=== PATIENT | female | born 1990 | race Two or more races ===

== ENCOUNTER 2018-11-05 19:23 | Emergency (ER) | payer MEDICAID ==
[~2018-11-05] VITALS: Ht 162.6 cm; Wt 63.5 kg
[2018-11-05 19:40] VITALS: BP 117/79
--- NOTE | 2018-11-05 19:40 | NUR ---
ED Nurse Note: pt walk in c/o burning sensation with urination with lower back pain for 2 days. denies n/v/d. will cont monitor.
--- NOTE | 2018-11-05 20:17 | Emergency Room Report ---
History of Present Illness General Chief Complaint: Female Urogenital Problems Source: Patient Present Illness HPI 28-year-old female patient presents the ER complaining of burning pain with urination times 2-day. Reports his been taking Pyridium without relief of symptoms. Reports suprapubic and bilateral flank pain during this time. Denies fever, chest pain, shortness of breath. Denies vomiting. Reports recent sexual activity with protection, denies concern for STI. Denies foul- smelling odor. Denies vaginal discharge. Denies pelvic lesions or rash. Denies other aggravating or relieving factors. Allergies: Coded Allergies: No Known Allergies (Unverified , 11/05/18) Patient History Past Medical History: see triage record Last Menstrual Period: 11/01/2018 Now: No Reviewed Nursing Documentation: PMH: Agreed; PSxH: Agreed Nursing Documentation-PMH Past Medical History: No Stated History Review of Systems All Other Systems: negative except mentioned in HPI Physical Exam Vital Signs Date Time Temp Pulse Resp B/P (MAP) Pulse Ox O2 Delivery O2 Flow Rate FiO2 11/05/18 19:29 97.5 73 16 117/79 97 Room Air Sp02 EP Interpretation: reviewed, normal General Appearance: well appearing, no apparent distress, alert, GCS 15, non- toxic Head: normocephalic, atraumatic Eyes: bilateral eye normal inspection, bilateral eye PERRL ENT: hearing grossly normal, normal pharynx, no angioedema, normal voice, uvula midline, moist mucus membranes Neck: full range of motion Respiratory: lungs clear, normal breath sounds, no rhonchi, no respiratory distress, no accessory muscle use, no wheezing, speaking full sentences Cardiovascular #1: regular rate, rhythm, no edema Gastrointestinal: non tender, soft, no mass, non-distended, no guarding, no rebound Genitourinary: no CVA tenderness Musculoskeletal: back normal, digits/nails normal, gait/station normal, normal range of motion, non-tender Neurologic: alert, oriented x3, responsive, motor strength/tone normal, sensory intact Psychiatric: mood/affect normal Medical Decision Making PA Attestation Dr. Skinner is my supervising Physician whom patient management has been discussed with. Diagnostic Impression: Primary Impression: Urinary tract infection ER Course Pt presents to ED c/o burning pain with urinary symptoms. DDX considered but are not limited to cystitis, pyelonephritis, STI, vaginitis, , BV, yeast infection. No abdominal TTP, negative obturator, negative Mena, negative Rovsing, low suspicion for cholecystitis or appendicitis, does not require imaging or labs at this time. VITAL SIGNS are WNL, patient is afebrile. Ordered UA. ER COURSE UA results show positive for nitrites and WBCs, indicate UTI, will treat with abx. Urine negative Discussed results with patient. If concern for STI, followup with STI clinic for testing and treatment. Denies STI concern. Patient is resting comfortably in chair, nontoxic appearing, in no acute distress. Patient states they feel better and is ready to go home. ER precautions given. DISCHARGE Patient is stable for discharge. Patient resting comfortably, in no acute distress, nontoxic appearing, talking without difficulty. Will provide with patient care instructions and any necessary prescriptions. Patient understands and agrees to treatment plan. Patient encouraged to drink plenty of fluids. Patient to take medication as instructed. Care plan and follow-up instructions provided. Patient questions asked and answered. Reports understanding and agreement to treatment plan. Patient instructed to follow-up with primary care provider in 3 - 5 days. ER precautions given. Patient instructed to return to ER immediately for any new or worsening of symptoms. Including but not limited to fever, abdominal pain , intractable vomiting. - Please note that this Emergency Department Report was dictated using [employer] designer technology software, occasionally this can lead to erroneous entry secondary to interpretation by the dictation equipment. Labs Test 11/05/18 19:50 Urine Color Chantelle Urine Appearance Slightly cloudy Urine pH 8 (4.5-8.0) Urine Specific [place] 1.020 (1.005-1.035) Urine Protein 2+ (NEGATIVE) Urine Glucose (UA) Negative (NEGATIVE) Urine Ketones Negative (NEGATIVE) Urine Blood 3+ (NEGATIVE) Urine Nitrite Positive (NEGATIVE) Urine Bilirubin 1+ (NEGATIVE) Urine Ictotest Negative (NEGATIVE) Urine Urobilinogen 1 MG/DL (0.0-1.0) Urine Leukocyte Esterase 2+ (NEGATIVE) Urine RBC 10-15 /HPF (0 - 2) Urine WBC 20-30 /HPF (0 - 2) Urine Squamous Epithelial Cells Many /LPF (NONE/OCC) Urine Bacteria Many /HPF (NONE) Urine HCG, Qualitative Negative (NEGATIVE) Last Vital Signs Date Time Temp Pulse Resp B/P (MAP) Pulse Ox O2 Delivery O2 Flow Rate FiO2 11/05/18 19:29 97.5 73 16 117/79 97 Room Air Status: improved Disposition: HOME, SELF-CARE Condition: Stable Scripts Trimethoprim/Sulfamethoxazole 160/800* (BACTRIM DS TABLET*) 1 Each Tablet 1 TAB ORAL TWICE A DAY for 7 Days, #14 TAB Prov: Nuno Philip 11/05/18 Patient Instructions: Urinary Tract Infection Additional Instructions: Followup with primary care provider and followup with and./or OBGYN. Drink plenty of fluids. Take medications as directed. Patient questions asked and answered. ER precautions given, patient instructed to return to ER immediately for any new or worsening of symptoms. Nuno Philip Nov 05, 2018 20:17
[2018-11-05 20:25] LABS: APPEARANCE,URINE SLIGHTLY CLOUDY; BILIRUBIN, URINE 1+ (NEGATIVE); GLUCOSE, URINE (UA) NEGATIVE (NEGATIVE); KETONES,URINE NEGATIVE (NEGATIVE); LEUKOCYTE ESTERASE ,URINE 2+ (NEGATIVE); NITRITE,URINE POSITIVE (NEGATIVE); PH,URINE 8 (4.5-8.0); PROTEIN,URINE 2+ (NEGATIVE); UROBILINOGEN,URINE 1 MG/DL (0.0-1.0)
[2018-11-05 20:27] LABS: COLOR,URINE AMBER
[2018-11-05] MEDS ORDERED: BACTRIM DS TAB1 EAC1 ORAL (20:30)
[2018-11-05 20:48] VITALS: BP 113/70
--- NOTE | 2018-11-05 20:48 | NUR ---
ED Nurse Note: PT is cleared to be d/c per ER provider, pt discharge/aftercare instruction with prescription provided, pt education done via discussion and hand out, pt advised to follow up with pcp or return to ED if s/s worsen or new sx develop, pt wrist band removed, pt verbalized understanding and agrees with plan, all belongings left with pt, pt ambulatory w/ steady gait, vss, resp even and unlabored RA.
[2018-11-08] MEDS ORDERED: CIPROFLOXACIN500 M2 ORAL ×2 (12:09→18:01)
== END 2018-11-05 20:48 | disposition home or self-care (01) ==
LOC: EMR 19:43
DX: N39.0 Urinary tract infection, site not specified (principal)
CPT/HCPCS: 81003; 81025; 87086; 87181; 99283

== ENCOUNTER 2018-11-08 15:07 | Emergency (ER) | payer MEDICAID ==
[~2018-11-08] VITALS: Ht 162.6 cm; Wt 63.5 kg
[~2018-11-08 15:07] MED LIST: BACTRIM DS TAB1 EAC1 ORAL; CIPROFLOXACIN500 M2 ORAL
--- NOTE | 2018-11-08 15:30 | NUR ---
ED Nurse Note: patient came from home complaining of lower back pain, AAO x 4, skin is dry, intact, VSS, breathing is normal, nonlabored. per patient she was in [facility] ER this Wednesday for same reason, and per patient symptoms got worse.
[2018-11-08 15:45] VITALS: BP 115/68
[2018-11-08] MEDS ORDERED: Isovue-300 100ml vial INJ PRN (15:45)
[2018-11-08] MEDS: Morphine Sulfate 4mg/ml Inj (IV USE ONLY) IVP ONE ×2 (15:45→16:33)
[2018-11-08] MEDS ORDERED: Ciprofloxacin 500mg tab ORAL ONE (15:45)
--- NOTE | 2018-11-08 15:50 | NUR ---
ED Nurse Note: RN tried to administer Morphin IV , and patient fell dizzy, heavy headache, RN stoped medication. Morphine was waste by protocol
--- NOTE | 2018-11-08 16:00 | NUR ---
ED Nurse Note: Maricarmen preskribed Toradol instead
[2018-11-08 16:18] LABS: APPEARANCE,URINE SLIGHTLY CLOUDY; BILIRUBIN, URINE NEGATIVE (NEGATIVE); COLOR,URINE PALE YELLOW; GLUCOSE, URINE (UA) NEGATIVE (NEGATIVE); KETONES,URINE NEGATIVE (NEGATIVE); LEUKOCYTE ESTERASE ,URINE 3+ (NEGATIVE); NITRITE,URINE NEGATIVE (NEGATIVE); PH,URINE 5 (4.5-8.0); PROTEIN,URINE 2+ (NEGATIVE); UROBILINOGEN,URINE NORMAL MG/DL (0.0-1.0)
[2018-11-08 16:25] LABS: BASOPHILS % (AUTO) 0.9 % (0.0-2.0); EOSINOPHILS % (AUTO) 0.9 % (0.0-3.0); HEMATOCRIT 41.2 % (37.0-47.0); HEMOGLOBIN 14.3 G/DL (12.0-16.0); LYMPHOCYTES % (AUTO) 12.8 % (20.0-45.0); MEAN CORPUSCULAR VOLUME 93 FL (80-99); MONOCYTES % (AUTO) 7.6 % (1.0-10.0); NEUTROPHILS % (AUTO) 77.8 % (45.0-75.0); PLATELET COUNT 202 K/UL (150-450); RED BLOOD COUNT 4.43 M/UL (4.20-5.40); RED CELL DISTRIBUTION WIDTH 11.8 % (11.6-14.8); WHITE BLOOD COUNT 7.9 K/UL (4.8-10.8)
[2018-11-08 16:29] LABS: ANION GAP 9 mmol/L (5-15); BLOOD UREA NITROGEN 10 mg/dL (7-18); CALCIUM 9.5 MG/DL (8.5-10.1); CARBON DIOXIDE 25 MMOL/L (21-32); CHLORIDE 104 MMOL/L (98-107); POTASSIUM 3.8 MMOL/L (3.5-5.1); SODIUM 138 MMOL/L (136-145)
[2018-11-08 16:33] LABS: ALANINE AMINOTRANSFERASE 26 U/L (12-78); ALBUMIN 4.1 G/DL (3.4-5.0); ALBUMIN/GLOBULIN RATIO 1.1 (1.0-2.7); ALKALINE PHOSPHATASE 62 U/L (46-116); ASPARTATE AMINO TRANSFERASE 22 U/L (15-37); BILIRUBIN,TOTAL 0.5 MG/DL (0.2-1.0)
--- NOTE | 2018-11-08 16:44 | Emergency Room Report ---
History of Present Illness General Chief Complaint: Pain Source: Patient Present Illness HPI 28-year-old female patient presents the ER complaining of bilateral flank pain and pain with urination for the past several days. Patient was previously seen here at [facility] a few days ago for similar symptoms. Patient was diagnosed urinary tract infection at that time and discharged home with antibiotics. Patient had been contacted by phone letting her know that the antibiotic she had been prescribed were resistant to the infection that she had and was told to return to the ER or contact us at refill of medication. Patient states that she did not receive these phone calls to return to the ER on her own due to the pain symptoms in her bilateral flank. Reports 2 episodes of vomiting yesterday, states been able to tolerate p.o. fluids since that time without incident. Reports continued pains of pain with urination. Denies diarrhea. Denies recent travel outside the country. Denies fever. Reports suprapubic abdominal pain. Denies chest pain, shortness of breath. Denies other aggravating or relieving factors. Allergies: Coded Allergies: No Known Allergies (Unverified , 11/05/18) Patient History Past Medical History: see triage record Last Menstrual Period: 11/01/18 Reviewed Nursing Documentation: PMH: Agreed; PSxH: Agreed Nursing Documentation-PMH Past Medical History: No Stated History Review of Systems All Other Systems: negative except mentioned in HPI Physical Exam Vital Signs Date Time Temp Pulse Resp B/P (MAP) Pulse Ox O2 Delivery O2 Flow Rate FiO2 11/08/18 15:26 98.2 91 20 116/84 97 Room Air Sp02 EP Interpretation: reviewed, normal General Appearance: well appearing, no apparent distress, alert, GCS 15, non- toxic Head: normocephalic, atraumatic Eyes: bilateral eye normal inspection, bilateral eye PERRL ENT: hearing grossly normal, normal pharynx, no angioedema, normal voice, uvula midline, moist mucus membranes Neck: full range of motion Respiratory: lungs clear, normal breath sounds, no rhonchi, no respiratory distress, no accessory muscle use, no wheezing, speaking full sentences Cardiovascular #1: regular rate, rhythm, no edema Gastrointestinal: normal bowel sounds, soft, no mass, non-distended, no guarding, no rebound, tenderness - Suprapubic, other - Negative obturator, negative Rovsing, negative heel strike Genitourinary: CVA tenderness (R), CVA tenderness (L) Musculoskeletal: back normal, digits/nails normal, gait/station normal, normal range of motion, non-tender Neurologic: alert, oriented x3, responsive, motor strength/tone normal, sensory intact Psychiatric: mood/affect normal Skin: no rash Medical Decision Making PA Attestation Dr. Kurtz is my supervising Physician whom patient management has been discussed with. Diagnostic Impression: Primary Impression: Urinary tract infection Additional Impressions: Constipation Ovarian cyst ER Course Pt. presents to the ED c/o dysuria, flank pain and vomiting. Ddx considered but are not limited to UTI, nephrolithiasis, hydronephrosis, appendicitis, diverticulitis, torsion. Begin abdominal pain workup. Provided patient with pain medication. Vital signs: are WNL, pt. is afebrile ORDERS: CBC, CMP, Lipase, UA, CT abdomen pelvis, and medication. ER COURSE: Provide with ciprofloxacin due to patient previous UA indicating susceptibility to ciprofloxacin of recurrent UTI infection. CBC and CMP unremarkable, no elevation in LFTs or WBCs Lipase within normal limits UA indicates UTI, will treat with ciprofloxacin due to susceptibility report from previous ER visit. First dose given in the ER. Urine negative. Discuss results with patient CT abdomen and pelvis no appendicitis, ovarian cyst, stool in colon. Advised patient follow-up with ANALYTICAL CHEMIST specialist. Will provide patient with Colace. Discuss results with the patient. Provided patient with copy of results. Instructed patient to followup with PCP and discuss results of report with patient, discuss need for further treatment and referral. Reports pain symptoms improve while in the ER. ER precautions given. DISCHARGE: At this time pt. is stable for d/c to home. Patient resting comfortably, in no acute distress, nontoxic appearing, talking without difficulty. Rx provided to patient. Patient to take medications as instructed Will provide with patient care instructions and any necessary prescriptions. Care plan and follow-up instructions provided. Patient instructed to follow-up with primary care provider in 3 - 5 days. Patient questions asked and answered. Patient reports understanding and agreement to treatment plan. ER precautions given. Patient instructed to return to ER immediately for any new or worsening of symptoms including but not limited to increasing SOB, persistent fever, worsening of pain symptoms, intractable vomiting, blood in stool, urine, and/or emesis. - Please note that this Emergency Department Report was dictated using [employer] van driver technology software, occasionally this can lead to erroneous entry secondary to interpretation by the dictation equipment. Labs Test 11/08/18 15:45 White Blood Count 7.9 K/UL (4.8-10.8) Red Blood Count 4.43 M/UL (4.20-5.40) Hemoglobin 14.3 G/DL (12.0-16.0) Hematocrit 41.2 % (37.0-47.0) Mean Corpuscular Volume 93 FL (80-99) Mean Corpuscular Hemoglobin 32.3 PG (27.0-31.0) Mean Corpuscular Hemoglobin Concent 34.7 G/DL (32.0-36.0) Red Cell Distribution Width 11.8 % (11.6-14.8) Platelet Count 202 K/UL (150-450) Mean Platelet Volume 8.2 FL (6.5-10.1) Neutrophils (%) (Auto) 77.8 % (45.0-75.0) Lymphocytes (%) (Auto) 12.8 % (20.0-45.0) Monocytes (%) (Auto) 7.6 % (1.0-10.0) Eosinophils (%) (Auto) 0.9 % (0.0-3.0) Basophils (%) (Auto) 0.9 % (0.0-2.0) Urine Color Pale yellow Urine Appearance Slightly cloudy Urine pH 5 (4.5-8.0) Urine Specific [place] 1.010 (1.005-1.035) Urine Protein 2+ (NEGATIVE) Urine Glucose (UA) Negative (NEGATIVE) Urine Ketones Negative (NEGATIVE) Urine Blood 5+ (NEGATIVE) Urine Nitrite Negative (NEGATIVE) Urine Bilirubin Negative (NEGATIVE) Urine Urobilinogen Normal MG/DL (0.0-1.0) Urine Leukocyte Esterase 3+ (NEGATIVE) Urine RBC 5-10 /HPF (0 - 2) Urine WBC 10-15 /HPF (0 - 2) Urine Squamous Epithelial Cells Few /LPF (NONE/OCC) Urine Bacteria Moderate /HPF (NONE) Urine HCG, Qualitative Negative (NEGATIVE) Sodium Level 138 MMOL/L (136-145) Potassium Level 3.8 MMOL/L (3.5-5.1) Chloride Level 104 MMOL/L (98-107) Carbon Dioxide Level 25 MMOL/L (21-32) Anion Gap 9 mmol/L (5-15) Blood Urea Nitrogen 10 mg/dL (7-18) Creatinine 1.0 MG/DL (0.55-1.30) Estimat Glomerular Filtration Rate > 60 mL/min (>60) Glucose Level 94 MG/DL (74-106) Calcium Level 9.5 MG/DL (8.5-10.1) Total Bilirubin 0.5 MG/DL (0.2-1.0) Aspartate Amino Transf (AST/SGOT) 22 U/L (15-37) Alanine Aminotransferase (ALT/SGPT) 26 U/L (12-78) Alkaline Phosphatase 62 U/L (46-116) Total Protein 7.8 G/DL (6.4-8.2) Albumin 4.1 G/DL (3.4-5.0) Globulin 3.7 g/dL Albumin/Globulin Ratio 1.1 (1.0-2.7) Lipase 180 U/L (73-393) CT/MRI/US Diagnostic Results CT/MRI/US Diagnostic Results : Imaging Test Ordered: CT abdomen pelvis with contrast Impression The lung bases are clear Abdominal solid organs and gallbladder appear within limits Moderate colonic stool without wall thickening No bowel dilation or free air Normal caliber appendix without secondary signs 2 cm right and left ovarian cyst No free fluid Last Vital Signs Date Time Temp Pulse Resp B/P (MAP) Pulse Ox O2 Delivery O2 Flow Rate FiO2 11/08/18 15:26 98.2 91 20 116/84 97 Room Air Status: improved Disposition: HOME, SELF-CARE Condition: Stable Scripts Docusate Sodium* (COLACE*) 100 Mg Capsule 100 MG ORAL THREE TIMES A DAY, #20 CAP Prov: Nuno Philip P.A. 11/08/18 Phenazopyridine Hcl* (PYRIDIUM*) 100 Mg Tablet 100 MG ORAL THREE TIMES A DAY, #20 TAB Prov: Nuno Philip.A. 11/08/18 Ciprofloxacin Hcl* (CIPROFLOXACIN HCL*) 500 Mg Tablet 500 MG ORAL EVERY 12 HOURS for 7 Days, #14 TAB 0 Refills Prov: Nuno Philip.A. 11/08/18 Patient Instructions: Constipation, Adult, [id number], Ovarian Cyst, Easy-to- Read, Urinary Tract Infection, [id number] Additional Instructions: Followup with primary care provider and followup with and./or OBGYN. Drink plenty of fluids. Take medications as directed. Pyridium has SE of turning urine orange. Follow-up with ANA[facility] CHEMIST to discuss ovarian cyst. Drink plenty of fluids. Patient questions asked and answered. ER precautions given, patient instructed to return to ER immediately for any new or worsening of symptoms. Nuno Philip Nov 08, 2018 16:44
[2018-11-08] MEDS ORDERED: Ketorolac 30mg Inj IM ONE (16:45)
[2018-11-08] MEDS ORDERED: CIPROFLOXACIN500 M2 ORAL (18:01)
[2018-11-08] MEDS ORDERED: PHENAZOPYRIDIN100 MG ORAL (18:01)
[2018-11-08] MEDS ORDERED: COLACE100 MG ORAL (18:01)
[2018-11-08 18:20] VITALS: BP 125/70
--- NOTE | 2018-11-08 18:22 | NUR ---
ED Nurse Note: patient was DC home, ambulatory with steadt gait, VSS, AAO x 4, all belongings were given to the patient. IV removed, pt. was educated, verbalised understanding.
--- NOTE | 2018-11-09 11:06 | Diagnostic Imaging Report ---
Clinical Indication: Bilateral flank pain and pain with urination for the past several days Technique: No oral contrast utilized, per emergency room physician request IV administration nonionic contrast. Venous phase spiral acquisition obtained through the abdomen and pelvis. Multiplanar reconstructions were generated. Total dose length product 680.46 mGycm. CTDIvol(s) 13.45 mGy. Dose reduction achieved using automated exposure control Comparison: none Findings: The appendix is prominent but otherwise normal. The colon is stool-filled, unremarkable. No evidence of diverticulosis or diverticulitis. No small bowel distention. No free or loculated intraperitoneal gas or fluid is evident. The distal esophagus, stomach, duodenum are unremarkable. The liver, gallbladder, bile ducts, pancreas, spleen, adrenals, kidneys are unremarkable. The bladder is unremarkable. No renal or ureteral calculi, hydronephrosis, or hydroureter. The uterus is slightly heterogeneous. No pelvic mass or adenopathy. Prominent bilateral ovarian follicles are noted. No retroperitoneal or mesenteric mass or adenopathy. The highest cuts demonstrate what is probably a right breast implant. The included lung bases are clear. The bones are unremarkable Impression: Negative This agrees with the preliminary interpretation provided overnight by [facility] teleradiology service. The CT scanner at [facility] is accredited by the [employer] and the scans are performed using protocols designed to limit radiation exposure to as low as reasonably achievable to attain images of sufficient resolution adequate for diagnostic evaluation.
== END 2018-11-08 18:27 | disposition home or self-care (01) ==
LOC: EMR 15:53
DX: N39.0 Urinary tract infection, site not specified (principal); K59.00 Constipation, unspecified; N83.209 Unspecified ovarian cyst, unspecified side
CPT/HCPCS: 36415; 74177; 80053; 81003; 81025; 83690; 85025; 86850; 86900; 86901; 87086; 96361; 96372; 96374; 99284; J1885; J2405; Q9967

== ENCOUNTER 2019-05-26 13:12 | Emergency (ER) | payer MEDICAID ==
[~2019-05-26] VITALS: Ht 162.6 cm; Wt 70.3 kg
[~2019-05-26 13:12] MED LIST changes: +COLACE100 MG ORAL; +PHENAZOPYRIDIN100 MG ORAL
[2019-05-26] MEDS ORDERED: NKM (13:33)
[2019-05-26 13:36] VITALS: BP 125/75
--- NOTE | 2019-05-26 13:42 | NUR ---
ED Nurse Note:pt. came with c/o epigastric pain for 2 days with nausea no vomiting
--- NOTE | 2019-05-26 13:56 | Emergency Room Report ---
History of Present Illness General Chief Complaint: Abdominal Pain Source: Patient Present Illness HPI 28-year-old female complaining of epigastric burning with nausea x2 days. States ate some Urdu food 2 to 3 days ago. Pain is 8/10, burning in quality. Radiating to chest. Denies fever, vomiting, diarrhea, constipation. Tried otc Antacid without improvement. Allergies: Coded Allergies: No Known Allergies (Unverified , 11/05/18) Patient History Past Medical History: none Past Surgical History: none Social History: Denies: smoking, alcohol use, drug use Last Menstrual Period: 05/24/19 Nursing Documentation-[facility] Past Medical History: No Stated History Review of Systems All Other Systems: negative except mentioned in HPI Physical Exam Vital Signs Date Time Temp Pulse Resp B/P (MAP) Pulse Ox O2 Delivery O2 Flow Rate FiO2 05/26/19 13:29 98.4 45 19 125/75 (92) 99 Room Air Sp02 EP Interpretation: reviewed General Appearance: no apparent distress, alert, GCS 15, non-toxic Respiratory: chest non-tender, lungs clear, normal breath sounds, speaking full sentences Cardiovascular #1: regular rate, rhythm, no edema Gastrointestinal: normal bowel sounds, non tender, soft, non-distended, no guarding, no rebound Neurologic: alert, oriented x3, responsive, motor strength/tone normal, sensory intact, speech normal Skin: no rash, warm/dry Medical Decision Making PA Attestation This patient was seen under the direct supervision of Dr. Perez, who directed all aspects of care and diagnostic interpretation. Diagnostic Impression: Primary Impression: Epigastric abdominal pain ER Course ED course HPI: 28-year-old female complaining of epigastric burning with nausea x2 days. States ate some Urdu food 2 to 3 days ago. Pain is 8/10, burning in quality. Radiating to chest. Denies fever, vomiting, diarrhea, constipation. Tried otc Antacid without improvement. Ddx: cholelithiasis, cholecystitis, pancreatitis, hepatitis, gastritis, peptic ulcer disease, partial small bowel obstruction, and others. HPI & PE consistent with: Epigastric abdominal pain. Orders/ Interventions: EKG shows no acute changes. Abdomen soft, no guarding or rigidity. Do not suspect acute abdomen. Patient has a benign exam and does not appear to require any imaging or laboratory testing at this time. Patient medicated with GI cocktail (mylanta + ), with improvement of symptoms from 04/29 to 410. Disposition: At this time pt. is stable for d/c to home. Prescription for Pepcid given. Take medications as directed. Instructed on how to take meds and possible side effects of medication Advised diet modifications: avoid spicy and acidic food, raw food, fried foods, dairy products, eat smaller meals, avoid eating right before bed, elevate head of bed. Advised to increase fluids intake and rest, avoid strenuous activities. Will provide printed patient care instructions, and any necessary prescriptions. Care plan and follow up instructions have been discussed with the patient prior to discharge. Please note that this Emergency Department Report was dictated using [employer] technology software, occasionally this can lead to erroneous entry secondary to interpretation by the dictation equipment. EKG Diagnostic Results EKG Time: 14:14 EP Interpretation: Interpreted by Dr. Chaka Perez Rate: bradycardiac - HR50 Rhythm: NSR ST Segments: no acute changes Last Vital Signs Date Time Temp Pulse Resp B/P (MAP) Pulse Ox O2 Delivery O2 Flow Rate FiO2 05/26/19 13:36 98.4 52 19 125/75 99 Room Air Status: improved Disposition: HOME, SELF-CARE Condition: Improved Scripts Famotidine (FAMOTIDINE) 20 Mg Tablet 20 MG ORAL DAILY for 10 Days, #10 TAB 0 Refills Prov: Adilia Maza 05/26/19 Patient Instructions: Abdominal Pain, Adult Additional Instructions: Take prescription as prescribed. Follow-up with PCP in 2 days or return to ER if worsening symptoms, new symptoms, or sudden change in condition Adilia Maza May 26, 2019 13:56
[2019-05-26] MEDS ORDERED: Dicyclomine HCl 10mg/5ml oral soln ORAL ONE (14:00)
[2019-05-26] MEDS ORDERED: GI Cocktail 50ml ORAL ONE (14:00)
[2019-05-26] MEDS ORDERED: Mylanta II UD 30ml ORAL ONE (14:00)
[2019-05-26] MEDS ORDERED: Lidocaine 2% Visc 15ml soln ONE (14:04)
[2019-05-26] MEDS ORDERED: FAMOTIDINE20 MG ORAL (14:20)
--- NOTE | 2019-05-26 14:30 | NUR ---
ER DISCHARGE NOTE: Patient is cleared to be discharged per ERMD, pt is aox4, on room air, with stable vital signs. pt was given dc and prescription instructions, pt was able to verbalize understanding, pt is able to ambulate with steady gait. pt took all belongings.
[2019-05-26 14:38] VITALS: BP 125/75
--- NOTE | 2019-05-28 15:21 | Cardiology Report ---
APPROVED REPORT EKG Measurement Heart [id number] Sinus bradycardia with arrhythmia Otherwise normal ECG
== END 2019-05-26 14:40 | disposition home or self-care (01) ==
LOC: EMR 14:14
DX: R10.13 Epigastric pain (principal)
CPT/HCPCS: 93005; 99282

== ENCOUNTER 2020-07-27 13:39 | Emergency (ER) | payer MEDICAID ==
[~2020-07-27] VITALS: Ht 162.6 cm; Wt 63.5 kg
[~2020-07-27 13:39] MED LIST changes: +FAMOTIDINE20 MG ORAL; +NKM
--- NOTE | 2020-07-27 14:00 | NUR ---
ED Nurse Note:urine sent to labs
[2020-07-27 14:21] VITALS: BP 128/66
--- NOTE | 2020-07-27 14:22 | NUR ---
ED Nurse Note:vaginal U/S being done
--- NOTE | 2020-07-27 14:22 | Emergency Room Report ---
History of Present Illness General Chief Complaint: Female Urogenital Problems Source: Patient Present Illness HPI 31-year-old female with history of recurrences of yeast infection here complaining of worsening pelvic pain and white clumpy and yellow vaginal discharge x3 days. Patient denies any sexual activity for over 1 month and reports that was last tested for chlamydia and gonorrhea and tested -2 weeks ago. Patient also had a wet mount done at an urgent care 2 weeks ago and was tested positive for yeast infection only and tested negative for BV and trichomoniasis. Patient finished the medication for yeast infection and had some leftover metronidazole at home and decided to take that to see if he has any better however reports that pelvic pain is worse. Denies any urinary frequ ency and urgency. Denies any dysuria at this time. Also complains of left- sided labial swelling. Denies any trauma to the area. Reports that her symptoms all started a day after she came back from [place]. Patient reports" I feel like there is something moving in me." Denies any vaginal bleeding or spotting. Reports last menstrual period was 2 weeks ago and regular. Patient also reports that her symptoms got worse yesterday after she shaved the area. Patient reports that she she has the area with a razor and not using any cream on daily basis. Allergies: Coded Allergies: No Known Allergies (Unverified , 11/05/18) COVID-19 Screening Contact w/high risk pt: No Experienced COVID-19 symptoms?: No COVID-19 Testing performed CLINICAL NURSE MANAGER: No Patient History Past Medical History: see triage record Past Surgical History: none Pertinent Family History: none Last Menstrual Period: 06/09/20 Now: No Immunizations: UTD Reviewed Nursing Documentation: PMH: Agreed; PSxH: Agreed Nursing Documentation-PMH Past Medical History: No Stated History Review of Systems All Other Systems: negative except mentioned in HPI Physical Exam Vital Signs Date Time Temp Pulse Resp B/P (MAP) Pulse Ox O2 Delivery O2 Flow Rate FiO2 07/27/20 13:43 98.2 60 19 128/66 (86) 96 Room Air Sp02 EP Interpretation: reviewed, normal General Appearance: no apparent distress, alert, GCS 15, non-toxic Head: normocephalic, atraumatic Eyes: bilateral eye normal inspection, bilateral eye PERRL ENT: hearing grossly normal, normal pharynx, no angioedema, normal voice Neck: full range of motion, supple/symm/no masses Respiratory: chest non-tender, lungs clear, normal breath sounds, speaking full sentences Cardiovascular #1: regular rate, rhythm, no edema Cardiovascular #2: 2+ carotid (R), 2+ carotid (L), 2+ radial (R), 2+ radial (L), 2+ dorsalis pedis (R), 2+ dorsalis pedis (L) Gastrointestinal: normal bowel sounds, non tender, soft, non-distended, no guarding, no rebound Rectal: deferred Genitourinary: no CVA tenderness, other - No indication of external vaginal canal noted Musculoskeletal: back normal Neurologic: alert, motor strength/tone normal, oriented x3, sensory intact, responsive, speech normal Psychiatric: judgement/insight normal, memory normal, mood/affect normal, no suicidal/homicidal ideation Skin: no rash Lymphatic: no adenopathy Medical Decision Making PA Attestation All diagnoses and treatment plans were reviewed and discussed with my supervising physician Dr. Henning Diagnostic Impression: Primary Impression: UTI (urinary tract infection) Additional Impressions: Pelvic pain Vaginitis ER Course 31-year-old female with history of recurrences of yeast infection here complaining of worsening pelvic pain and white clumpy and yellow vaginal discharge x3 days. Patient denies any sexual activity for over 1 month and reports that was last tested for chlamydia and gonorrhea and tested -2 weeks ago. Patient also had a wet mount done at an urgent care 2 weeks ago and was tested positive for yeast infection only and tested negative for BV and trichomoniasis. Patient finished the medication for yeast infection and had some leftover metronidazole at home and decided to take that to see if he has a [place] better however reports that pelvic pain is worse. Denies any urinary frequency and urgency. Denies any dysuria at this time. Also complains of left-sided labial swelling. Denies any trauma to the area. Reports that her symptoms all started a day after she [facility] Patient reports" I feel like there is something moving in me." Denies any vaginal bleeding or spotting. Reports last menstrual period was 2 weeks ago and regular. Patient also reports that her symptoms got worse yesterday after she shaved the area. Patient reports that she she has the area with a razor and not using any cream on daily basis. Ddx considered but are not limited to: vaginitis, yeast infection, BV, chlamydia, Gonorrhea, syphilis, HIV, herpes 1 or 2, UTI, PID Vital signs: are WNL, pt. is afebrile H&PE are most consistent with : UTI, vaginitis, pelvic pain Patient deferred treatment for possible trichomoniasis and BV Patient request more medication for yeast infection ORDERS: UA, urince cx, urine test, pelvic ultrasound, Bactrim DS, Diflucan ED INTERVENTIONS: None required at this time. Due to patient testing negative for chlamydia gonorrhea and all other STDs as well as 2 weeks and not being sexually active since no further evaluation and treatment in this regard needed at this time. I ordered a pelvic ultrasound to rule out PID. DISCHARGE: At this time pt. is stable for d/c to home. Will provide printed patient care instructions, and any necessary prescriptions. Care plan and follow up instructions have been discussed with the patient prior to discharge. Patient take medication as directed, follow-up with overlock collar setter, worsening symptoms to the emergency room CT/MRI/US Diagnostic Results CT/MRI/US Diagnostic Results : Imaging Test Ordered: pelvic/tvus US Impression EXAM: US Pelvis Transabdominal and Transvaginal, Complete CLINICAL HISTORY: PAIN TECHNIQUE: Real-time complete transabdominal and transvaginal pelvic ultrasound with image documentation. Transvaginal imaging was used for better evaluation of the endometrium and adnexa. COMPARISON: None FINDINGS: Uterus/cervix: Retroverted uterus measures 8.9 x 4.5 x 5.7 cm. Endometrium measures 10.2 mm in thickness. Nabothian cysts in the cervix. No myometrial mass. Right ovary: Right ovary measures 3.3 x 1.8 x 4.1 cm. Dominant follicle in the right ovary. Normal blood flow. Left ovary: Left ovary measures 2.7 x 1.6 x 2.5 cm. Follicles in the left ovary. Normal blood flow. Free fluid: Small amount of free fluid in the pelvis which may be physiologic. IMPRESSION: No acute abnormality. Last Vital Signs Date Time Temp Pulse Resp B/P (MAP) Pulse Ox O2 Delivery O2 Flow Rate FiO2 07/27/20 13:43 98.2 60 19 128/66 (86) 96 Room Air Disposition: HOME, SELF-CARE Condition: Stable [facility]errals: [facility] ([facility]P) Patient Instructions: Vaginitis, Urinary Tract Infection Additional Instructions: Patient take medication as directed, follow-up with overlock collar setter, worsening symptoms to the emergency room Latasha Morales Jul 27, 2020 14:22
[2020-07-27 14:23] LABS: APPEARANCE,URINE SLIGHTLY CLOUDY; BILIRUBIN, URINE NEGATIVE (NEGATIVE); GLUCOSE, URINE (UA) NEGATIVE (NEGATIVE); KETONES,URINE NEGATIVE (NEGATIVE); LEUKOCYTE ESTERASE ,URINE 3+ (NEGATIVE); NITRITE,URINE NEGATIVE (NEGATIVE); PH,URINE 8 (4.5-8.0); PROTEIN,URINE 1+ (NEGATIVE); UROBILINOGEN,URINE NORMAL MG/DL (0.0-1.0)
[2020-07-27 14:34] LABS: COLOR,URINE YELLOW
--- NOTE | 2020-07-27 16:18 | Diagnostic Imaging Report ---
EXAM: US Pelvis Transabdominal and Transvaginal, Complete CLINICAL HISTORY: PAIN TECHNIQUE: Real-time complete transabdominal and transvaginal pelvic ultrasound with image documentation. Transvaginal imaging was used for better evaluation of the endometrium and adnexa. COMPARISON: None FINDINGS: Uterus/cervix: Retroverted uterus measures 8.9 x 4.5 x 5.7 cm. Endometrium measures 10.2 mm in thickness. Nabothian cysts in the cervix. No myometrial mass. Right ovary: Right ovary measures 3.3 x 1.8 x 4.1 cm. Dominant follicle in the right ovary. Normal blood flow. Left ovary: Left ovary measures 2.7 x 1.6 x 2.5 cm. Follicles in the left ovary. Normal blood flow. Free fluid: Small amount of free fluid in the pelvis which may be physiologic. IMPRESSION: No acute abnormality.
[2020-07-27] MEDS ORDERED: DIFLUCAN100 MG ORAL (16:31)
[2020-07-27] MEDS ORDERED: BACTRIM DS TAB1 EAC1 ORAL (16:31)
[2020-07-27 16:35] VITALS: BP 128/66
--- NOTE | 2020-07-27 16:35 | NUR ---
ED Nurse Note: Pt cleared by health care Provider for discharge. DC instructions/prescription was given and explained to pt and verbalized understanding of teachings. All medical deviecs such as ID band removed. Pt is AAO x4, ambulatory and left with all personal belongings.
== END 2020-07-27 16:43 | disposition home or self-care (01) ==
LOC: EMR 13:53
DX: N39.0 Urinary tract infection, site not specified (principal); R10.2 Pelvic and perineal pain; N76.0 Acute vaginitis
CPT/HCPCS: 76830; 76856; 81003; 81025; Z7502; 99284

== ENCOUNTER 2020-10-28 15:37 | Emergency (ER) | payer MEDICAID ==
[~2020-10-28] VITALS: Ht 162.6 cm; Wt 63.5 kg
[~2020-10-28 15:37] MED LIST changes: +DIFLUCAN100 MG ORAL
[2020-10-28 16:04] VITALS: BP 107/63
[2020-10-28 16:05] LABS: APPEARANCE,URINE CLOUDY; BILIRUBIN, URINE NEGATIVE (NEGATIVE); GLUCOSE, URINE (UA) NEGATIVE (NEGATIVE); KETONES,URINE NEGATIVE (NEGATIVE); LEUKOCYTE ESTERASE ,URINE 3+ (NEGATIVE); NITRITE,URINE NEGATIVE (NEGATIVE); PH,URINE 5 (4.5-8.0); PROTEIN,URINE 2+ (NEGATIVE); UROBILINOGEN,URINE NORMAL MG/DL (0.0-1.0)
[2020-10-28 16:25] LABS: ANION GAP 8 mmol/L (5-15); BLOOD UREA NITROGEN 12 mg/dL (7-18); CALCIUM 9.2 MG/DL (8.5-10.1); CARBON DIOXIDE 28 MMOL/L (21-32); CHLORIDE 103 MMOL/L (98-107); CREATININE 0.9 MG/DL (0.55-1.30); POTASSIUM 3.7 MMOL/L (3.5-5.1); SODIUM 139 MMOL/L (136-145)
[2020-10-28 16:30] LABS: ALANINE AMINOTRANSFERASE 25 U/L (12-78); ALBUMIN 4.2 G/DL (3.4-5.0); ALKALINE PHOSPHATASE 62 U/L (46-116); ASPARTATE AMINO TRANSFERASE 29 U/L (15-37); BILIRUBIN,TOTAL 0.3 MG/DL (0.2-1.0)
[2020-10-28 16:30] LABS: COLOR,URINE YELLOW
[2020-10-28 16:37] LABS: EOSINOPHILS % (AUTO) 0.2 % (0.0-3.0); HEMOGLOBIN 14.9 G/DL (12.0-16.0); LYMPHOCYTES % (AUTO) 23.4 % (20.0-45.0); MEAN CORPUSCULAR VOLUME 97 FL (80-99); MONOCYTES % (AUTO) 16.5 % (1.0-10.0); NEUTROPHILS % (AUTO) 57.9 % (45.0-75.0); PLATELET COUNT 147 K/UL (150-450); RED BLOOD COUNT 4.75 M/UL (4.20-5.40); WHITE BLOOD COUNT 5.1 K/UL (4.8-10.8)
[2020-10-28] MEDS ORDERED: cefTRIAXone 1 GM in NS 55 ML IVPB ONE (17:00)
--- NOTE | 2020-10-28 17:36 | Emergency Room Report ---
History of Present Illness General Chief Complaint: Generalized Weakness Source: Patient Present Illness HPI This patient states that 1 week ago she was diagnosed with a urinary tract infection at an urgent care in the community. She states that she was placed on Macrobid. She states that she began having side effects of weakness, body aches, lightheadedness and shortness of breath and so she stopped the Macrobid 3 days ago. She states she continues to have the same symptoms. She does have some suprapubic cramping. She denies nausea or vomiting or diarrhea. She states that she is sexually active but that she has no concern for sexually transmitted infection as she does not have any pelvic symptoms other than the cramping with urination. She states this feels like a regular urinary tract infections which she has had previously. She has no other complaints. Allergies: Coded Allergies: No Known Allergies (Unverified , 11/05/18) COVID-19 Screening Contact w/high risk pt: No Experienced COVID-19 symptoms?: No COVID-19 Testing performed REEL WINDER: No Patient History Past Medical History: none Past Surgical History: none Social History: Denies: smoking, alcohol use, drug use Last Menstrual Period: 10/21/20 Now: No Reviewed Nursing Documentation: PMH: Agreed; PSxH: Agreed Nursing Documentation-PMH Past Medical History: No Stated History Review of Systems All Other Systems: negative except mentioned in HPI Physical Exam Vital Signs Date Time Temp Pulse Resp B/P (MAP) Pulse Ox O2 Delivery O2 Flow Rate FiO2 10/28/20 15:43 98.2 83 18 118/85 (96) 96 Room Air 10/28/20 16:04 100 Sp02 EP Interpretation: reviewed, normal General Appearance: no apparent distress, alert, GCS 15, non-toxic Head: normocephalic, atraumatic Eyes: bilateral eye normal inspection ENT: hearing grossly normal, normal pharynx, no angioedema, normal voice Neck: full range of motion, supple/symm/no masses Respiratory: lungs clear, normal breath sounds, no respiratory distress, no retraction, no accessory muscle use, speaking full sentences Cardiovascular #1: regular rate, rhythm, no edema Gastrointestinal: normal bowel sounds, non tender, soft, non-distended, no guarding, no rebound Rectal: deferred Musculoskeletal: back normal, normal range of motion, gait/station normal, non- tender Neurologic: alert, motor strength/tone normal, oriented x3, sensory intact, responsive, speech normal Psychiatric: judgement/insight normal, memory normal, mood/affect normal, no suicidal/homicidal ideation Skin: no rash, normal color Medical Decision Making Diagnostic Impression: Primary Impression: UTI (urinary tract infection) ER Course This patient has a urinary tract infection. She does describe systemic symptoms however, the patient's vital signs are within normal limits and she is afebrile and her laboratory work-up is benign. She describes systemic symptoms and this could be related to the urinary tract infection versus medication side effect which is what she believes with the Macrobid. She does present during the COVID-19 pandemic. This could also be a COVID-19 infection. I did offer adam kraft, however the patient declined stating she did not believe that she was at risk for COVID-19. Given the patient's description of her symptoms, I did give her IV Rocephin and will change her antibiotic to Septra DS. The patient was educated that if she stops the oral antibiotic she would need to be seen immediately for concern that she could worsen and not fully treat her urinary tract infection and she could become very ill rapidly. She indicated understanding and intention to do so. Overall, the patient's evaluation was benign and laboratory work-up was benign. She is given close return precautions and follow-up instructions. This patient was evaluated in the context of the global COVID-19 pandemic, which necessitated consideration that the patient might be at risk for infection with the [id number] virus that causes COVID-19. Institutional protocols and algorithms that pertain to the evaluation of patients at risk for COVID-19 and the state of rapid change based on information released by multiple regulatory bodies including the CDC and federal and state organizations. These policies and algorithms were followed during the patient's care in the ED. Laboratory Tests Test 10/28/20 15:55 10/28/20 16:00 Urine Color Yellow Urine Appearance Cloudy Urine pH 5 (4.5-8.0) Urine Specific [place] 1.025 (1.005-1.035) Urine Protein 2+ (NEGATIVE) H Urine Glucose (UA) Negative (NEGATIVE) Urine Ketones Negative (NEGATIVE) Urine Blood 4+ (NEGATIVE) H Urine Nitrite Negative (NEGATIVE) Urine Bilirubin Negative (NEGATIVE) Urine Urobilinogen Normal MG/DL (0.0-1.0) Urine Leukocyte Esterase 3+ (NEGATIVE) H Urine RBC 15-20 /HPF (0 - 2) H Urine WBC 20-30 /HPF (0 - 2) H Urine Squamous Epithelial Cells Many /LPF (NONE/OCC) H Urine Bacteria Many /HPF (NONE) H Urine HCG, Qualitative Negative (NEGATIVE) White Blood Count 5.1 K/UL (4.8-10.8) Red Blood Count 4.75 M/UL (4.20-5.40) Hemoglobin 14.9 G/DL (12.0-16.0) Hematocrit 46.0 % (37.0-47.0) Mean Corpuscular Volume 97 FL (80-99) Mean Corpuscular Hemoglobin 31.4 PG (27.0-31.0) H Mean Corpuscular Hemoglobin Concent 32.4 G/DL (32.0-36.0) Red Cell Distribution Width 12.0 % (11.6-14.8) Platelet Count 147 K/UL (150-450) L Mean Platelet Volume 8.0 FL (6.5-10.1) Neutrophils (%) (Auto) 57.9 % (45.0-75.0) Lymphocytes (%) (Auto) 23.4 % (20.0-45.0) Monocytes (%) (Auto) 16.5 % (1.0-10.0) H Eosinophils (%) (Auto) 0.2 % (0.0-3.0) Basophils (%) (Auto) 2.0 % (0.0-2.0) Sodium Level 139 MMOL/L (136-145) Potassium Level 3.7 MMOL/L (3.5-5.1) Chloride Level 103 MMOL/L (98-107) Carbon Dioxide Level 28 MMOL/L (21-32) Anion Gap 8 mmol/L (5-15) Blood Urea Nitrogen 12 mg/dL (7-18) Creatinine 0.9 MG/DL (0.55-1.30) Estimated Glomerular Filtration Rate > 60 mL/min (>60) Glucose Level 92 MG/DL (74-106) Calcium Level 9.2 MG/DL (8.5-10.1) Total Bilirubin 0.3 MG/DL (0.2-1.0) Aspartate Amino Transferase (AST) 29 U/L (15-37) Alanine Aminotransferase (ALT) 25 U/L (12-78) Alkaline Phosphatase 62 U/L (46-116) Total Protein 8.5 G/DL (6.4-8.2) H Albumin 4.2 G/DL (3.4-5.0) Globulin 4.3 g/dL Albumin/Globulin Ratio 1.0 (1.0-2.7) Last Vital Signs Date Time Temp Pulse Resp B/P (MAP) Pulse Ox O2 Delivery O2 Flow Rate FiO2 10/28/20 16:04 76 18 107/63 100 Room Air 10/28/20 16:04 100 10/28/20 15:43 98.2 Status: improved Disposition: HOME, SELF-CARE Condition: Improved [facility]errals: [facility] ([facility]P) Miranda Ha DO Oct 28, 2020 17:36
[2020-10-28] MEDS ORDERED: CIPROFLOXACIN500 M2 ORAL (17:38)
[2020-10-28 18:01] VITALS: BP 105/78
--- NOTE | 2020-10-28 18:01 | NUR ---
ER DISCHARGE NOTE: Patient is cleared to be discharged per ERMD, pt is aox4, on room air, with stable vital signs. pt was given dc and prescription instructions, pt was able to verbalize understanding, pt id band and iv site removed without complications. pt is able to ambulate with steady gait. pt took all belongings.
== END 2020-10-28 18:03 | disposition home or self-care (01) ==
LOC: EMR 16:05
DX: N39.0 Urinary tract infection, site not specified (principal)
CPT/HCPCS: 36415; 80053; 81003; 81025; 85025; 87086; 96361; 96365; J0696; J7030; Z7502; 99284